=== PATIENT | female | born 2000 | race Caucasian/White ===

== ENCOUNTER 2023-12-02 08:22 | Emergency (ER) | payer OTHER, SELFPAY ==
[2023-12-02 08:23] VITALS: BP 127/80
[2023-12-02 09:27] VITALS: BMI 36.1
--- NOTE | 2023-12-02 09:47 | ED.GENMED ---
History of Present Illness
General
Chief Complaint: Abdominal Symptoms
Source: patient
Exam Limitations: none
Time Seen by Provider: 12/02/23 09:19
Nursing documentation reviewed up to this point in time: agreed with
History of Present Illness
History of Present Illness:
23 yo female w h/o ADHD, acne on Spironolactone, chronic abdominal pain 'but always above my belly button' now here with about 10 days of mid lower abdominal pain, nausea, decreased appetite, vomited once yesterday and once this a.m. Stool 'soft,
stringy with mucous.' Pain is constant, crampy, waxes and wanes from 5/10 now to 8/10 at times, relieved some this a.m. with Bentyl. Zofran has not helped the nausea. Saw PCP @ [facility] yesterday and had blood work, H pylori tests (no results back yet),
given rx for stool sample also.
Denies f/c. Last emesis [address] Kolb, had unremarkable Upper Endoscope and Colonoscopy a year ago.
[facility]: Rx for Vivance for ADHD this month, hasn't started yet
[employer]: [facility]: 3 mos ago, unremarkable visit. LMP 830. Just started control patch.
Past History
Past History
ED Past Medical History: Other (Migraines, question IBS, H. pylori, diverticulosis)
ED Past Surgical History: Tonsilectomy
Review of Systems
Review of Systems
Allergies reviewed?: Yes
All Other Systems: ROS reviewed and negative except as documented in HPI and ROS
Constitutional: Denies fever or chills
EENT: Denies sore throat
Respiratory: Denies trouble breathing
Cardiac: Denies chest pain
ABD/GI: Reports abdominal pain, nausea, vomiting and anorexia; Denies diarrhea, constipated, bloody stools or black stools
: Denies dysuria, frequency, flank pain, difficulty voiding, urgency, bleeding or dark urine
Musculoskeletal: Reports no symptoms
Skin: Reports no symptoms
Neurological: Reports no symptoms
Phy Exam
Physical Exam
Physical Exam:
GENERAL: No acute distress. A&Ox3.
CONSTITUTIONAL: Afebrile.
EYES: clear, conjunctivae normal
ENMT: moist mucus membranes, Pharynx nl
RESPIRATORY: Regular respirations, nonlabored, lungs clear.
CARDIOVASCULAR: Regular rate and rhythm, no murmurs, no rubs.
GI: Soft, tender to palpation left to mid lower abdomen, normal BS
MUSCULOSKELETAL: Moves with ease. Well perfused.
SKIN: Warm, dry, pink
PSYCH: Normal mood and affect. Well kept, interactive and appropriate
NEUROLOGIC: Awake, alert and oriented. No focal neurological deficits
Course
Orders/Labs/Results
Orders:
Orders
12/02/23 09:28
Test Result ONCE
12/02/23 09:29
Complete Blood Count/With Diff Urgent
Comprehensive Metabolic Panel Urgent
HCG, Serum Qualitative Screen Urgent
Lipase Urgent
12/02/23 10:02
0.9% Sodium Chloride 1000 ml [Nss] 1,000 ml IV BOLUS
12/02/23 10:03
Urinalysis Reflex To Culture Urgent
Date Specimen was Collected: 12/02/23
Time Specimen was Collected: 10:02
Urine Microscopic Reflex Cult Urgent
Urine Culture Urgent
JEFFREY Source: U
Specimen Description:
Date Specimen was Collected: 12/02/23
Time Specimen was Collected: 10:02
12/02/23 11:44
CT Abd/Pel (IV only)-DH only Urgent
Comment:
Reason For Exam: pain across lower abdomen
Abnormal Lab Results
12/02/23 12/02/23
: 10:03
Absolute Neuts (auto) 6.6 H 10^3/uL
(1.4-6.5)
Lymphocytes % 18.7 L %
(20.5-51.1)
Carbon Dioxide 16 L mmol/L
(22-30)
Urine Ketones 3+ A
(Negative)
Urine Bilirubin 1+ A
(Negative)
Leukocyte Esterase Rfl Trace A
(Negative)
Urine Bacteria (Reflex) Moderate A
(Negative)
12/02/23 09:29
12/02/23 09:29
Vital Signs
Initial and Last Documented VS:
Initial Vital Signs
Temp Pulse Resp BP Pulse Ox
99.2 F 123 20 127/80 99
12/02/23 08:23 12/02/23 08:23 12/02/23 08:23 12/02/23 08:23 12/02/23 08:23
Last Documented Vital Signs
Temp Pulse Resp BP Pulse Ox
99.2 F 98 16 124/61 97
12/02/23 08:23 12/02/23 11:55 12/02/23 11:55 12/02/23 11:52 12/02/23 11:55
MDM/Problems Addressed
Differential Diagnosis Includes:
UTI, cystitis
MDM/Problems Addressed:
23 yo female w h/o ADHD, acne on Spironolactone, chronic abdominal pain 'but always above my belly button' now here with about 10 days of mid lower abdominal pain, nausea, decreased appetite, vomited once yesterday and once this a.m. Stool 'soft,
stringy with mucous.' Pain is constant, crampy, waxes and wanes from 5/10 now to 8/10 at times, relieved some this a.m. with Bentyl. Zofran has not helped the nausea. Saw PCP @ [facility] yesterday and had blood work, H pylori tests (no results back yet),
given rx for stool sample also.
Denies f/c. Last emesis 7 a.m. bile.
Afebrile, NAD
CBC normal
CMP unremarkable Bicarb 16 likely from anorexia
Lipase normal
HCG neg.
Pt requesting something to drink will give ice chips and observe tolerance.
11:30 AM:
U/A WBC 6-10, moderate bacteria >30 squamous cells do not suspect UTI
Nothing in w/u to explain symptoms
Re exam of abdomen, continues tender across lower abdomen
Pt and family concerned for appendicitis, discussed normal labs, low suspicion, risk of radiation, they prefer to get it.
1:[address] Abd/Pelvis with IV only contrast radiology report read: IMPRESSION:
1. Unchanged 3 mm nodule right lower lobe.
2. As above, numerous prominent, but subcentimeter short axis, lymph nodes throughout the mesentery. Nonspecific but could be seen in association with infectious or inflammatory process.
3. As above, there is suggestion of mild periappendiceal inflammatory stranding. However the appendix is normal in caliber and is filled with air, suggesting against the possibility of acute appendicitis.
4. Right adnexal cyst measuring up to 2.9 cm in diameter, most likely ovarian cyst. Is within expected physiologic size limits for functional cyst in a premenopausal patient. There is trace free fluid within the pelvis.
Final diagnosis: Mesenteric Lymphadenitis
Pt informed, all questions answered. She is feeling much better.
*Critical Care Note
Total Time (30-74mins, 75-104mins- exclusive of procedures): Not Applicable
ED Attending Note
-
Portions of this chart may have been created with voice recognition software.� Occasional wrong word or��sound alike� substitutions may have occurred due to the inherent limitations of voice recognition software.
Discharge Plan
Departure
Patient Disposition: Home (Routine Discharge)
Date of Disposition: 12/02/23
Time of Disposition: 13:45
Patient with high blood pressure during this ER visit?: No
Condition: Good
Discharge Problem:
Abdominal pain, Acute mesenteric adenitis
Instructions: Mesenteric Lymphadenitis (DC), Abdominal Pain
Prescriptions:
No Action
ondansetron 4 mg tablet,disintegrating
4 mg PO Q8H PRN (Reason: nausea and vomiting) 4 Days Qty: 14 0RF
dicyclomine 10 mg capsule
20 mg PO TID PRN (Reason: abdominal pain) Qty: 20 0RF
Referrals:
Zandra Gutierrez PA-C [Family Provider] - Follow up in 5-7 days
Activity Restrictions/Additional Instructions:
As we discussed, no indication for acute appendicitis on your CT scan.
Few inflamed lymph nodes MAY be causing your symptoms and these are typically caused by viral illness and go away on their own. Ibuprofen 600 mg every 6 hours as needed for pain usually helps with the inflammation. You may continue to Bentyl since
it helped
See your doctor for recheck next week.
Interventions
Interventions:
*Risk Screen - Suicide Last Done: 12/02/23 08:23
*General Assessment Last Done: 12/02/23 08:23
*Neglect/Abuse Screening Last Done: 12/02/23 08:23
ED- Fall Risk Assessment Last Done: 12/02/23 14:10
*ED COVID-19 Vaccine History Last Done: 12/02/23 14:10
*Nursing Disposition Last Done: 12/02/23 14:10
IP-Derqux-Hlxdyoocmb Assessment Last Done: 12/02/23 09:27
Discharge Date and Time
Discharge Date/Time: 12/02/23 14:10
Print Language: AZERI
[2023-12-02 09:48] LABS: % Basophils 0.4 % (0-2); % Eosinophils 0.2 % (0-6); % Immature Granulocytes 0.2 % (0-0.5); % Lymphocytes 18.7 % (20.5-51.1); % Monocytes 6.2 % (1.7-9.3); % Neutrophils 74.3 % (42.2-75.2); Absolute Lymphocytes 1.7 10^3/uL (1.2-3.4); Absolute Monocytes 0.6 10^3/uL (0.1-0.6); Absolute Neutrophils 6.6 10^3/uL (1.4-6.5); Hematocrit 37.1 % (37.0-47.0); Hemoglobin 12.7 g/dL (12.0-16.0); Mean Corp Hgb Conc. 34.2 g/dL (33.0-37.0); Mean Corpuscular Hgb 29.2 pg (27.0-31.0); Mean Corpuscular Volume 85.3 fL (81.0-99.0); Mean Platelet Volume 8.4 fL (7.4-10.4); Nucleated Red Blood Cells % 0 %; Platelet Count 347 10^3/uL (130-400); Red Blood Cell Count 4.35 10^6/uL (4.20-5.40); White Blood Cell Count 8.9 10^3/uL (4.8-10.8)
[2023-12-02 09:51] LABS: HCG, Serum Qualitative Screen Negative
[2023-12-02 09:54] LABS: ALT (SGPT) 25 U/L (0-35); AST (SGOT) 26 U/L (14-36); Albumin 4.5 g/dl (3.5-5.0); Alkaline Phosphatase 65 U/L (38-126); Blood Urea Nitrogen 11 mg/dl (7-17); Carbon Dioxide 16 mmol/L (22-30); Chloride 105 mmol/L (98-107); Estimated Creatinine Clearance 93 ml/min; Glucose 76 mg/dl (70-99); Lipase 46 U/L (23-300); Potassium 4.6 mmol/L (3.5-5.1); Sodium 139 mmol/L (135-145); Total Protein 7.2 g/dl (6.3-8.2); eGFR > 60.00
[2023-12-02] MEDS: NSS 1000 IV (10:06)
[2023-12-02 10:11] VITALS: BP 105/72
[2023-12-02 10:12] LABS: Urine Albumin Trace (Neg - Trace); Urine Bilirubin 1+ (Negative); Urine Character Slightly Cloudy (Clear); Urine Color Yellow; Urine Glucose Negative (Negative); Urine Ketone 3+ (Negative); Urine Leukocyte Trace (Negative); Urine Nitrite Negative (Negative); Urine Occult Blood Negative (Negative); Urine Specific Gravity 1.025 (<1.030); Urine Urobilinogen Negative (Neg - 1+)
[2023-12-02 11:03] LABS: Urine Bacteria Moderate (Negative); Urine Squamous Cell >30 /LPF (Few)
[2023-12-02 11:04] LABS: Urine Red Blood Cell 0-2 /HPF (0-2)
[2023-12-02 11:52] VITALS: BP 124/61
== END 2023-12-02 14:10 | disposition home or self-care (01) ==
LOC: EMR 08:22
PROVIDERS: Registered Nurse; EMERGENCY PHYSICIAN Emergency Medicine; FAMILY PHYSICIAN Physician Assistant Medical
DX: R10.30 Lower abdominal pain, unspecified (principal); I88.0 Nonspecific mesenteric lymphadenitis; F90.9 Attention-deficit hyperactivity disorder, unspecified type
CPT/HCPCS: 99284; 96360; 74177; 80053; 81003; 81015; 83690; 84703; 85025; 87086; Q9967

== ENCOUNTER 2024-04-27 17:17 | Emergency (ER) | payer OTHER, SELFPAY ==
[2024-04-27 17:19] VITALS: BP 127/83
[2024-04-27 17:36] LABS: % Basophils 0.5 % (0-2); % Eosinophils 2.4 % (0-6); % Immature Granulocytes 0.3 % (0-0.5); % Lymphocytes 36.1 % (20.5-51.1); % Monocytes 7.6 % (1.7-9.3); % Neutrophils 53.1 % (42.2-75.2); Absolute Basophils 0.1 10^3/uL (0-0.2); Absolute Eosinophils 0.3 10^3/uL (0-0.7); Absolute Lymphocytes 3.9 10^3/uL (1.2-3.4); Absolute Monocytes 0.8 10^3/uL (0.1-0.6); Absolute Neutrophils 5.7 10^3/uL (1.4-6.5); Hematocrit 38.8 % (37.0-47.0); Hemoglobin 13.3 g/dL (12.0-16.0); Mean Corp Hgb Conc. 34.3 g/dL (33.0-37.0); Mean Corpuscular Hgb 29.4 pg (27.0-31.0); Mean Corpuscular Volume 85.7 fL (81.0-99.0); Mean Platelet Volume 8.1 fL (7.4-10.4); Nucleated Red Blood Cells % 0 %; Platelet Count 367 10^3/uL (130-400); Red Blood Cell Count 4.53 10^6/uL (4.20-5.40); Red Cell Dist. Width 11.9 % (11.5-14.5); White Blood Cell Count 10.8 10^3/uL (4.8-10.8)
[2024-04-27 18:20] LABS: ALT (SGPT) 20 U/L (0-35); AST (SGOT) 28 U/L (14-36); Albumin 4.3 g/dl (3.5-5.0); Alkaline Phosphatase 54 U/L (38-126); Blood Urea Nitrogen 12 mg/dl (7-17); Calcium 9.5 mg/dl (8.4-10.2); Carbon Dioxide 23 mmol/L (22-30); Chloride 106 mmol/L (98-107); Glucose 94 mg/dl (70-99); Potassium 4.5 mmol/L (3.5-5.1); Sodium 137 mmol/L (135-145); Total Bilirubin 0.5 mg/dl (0.2-1.3); Total Protein 7.4 g/dl (6.3-8.2); eGFR > 60.00
== END 2024-04-27 19:47 ==
LOC: EMR 17:17
PROVIDERS: Emergency Medicine
DX: A49.8 Other bacterial infections of unspecified site (principal); Z53.21 Procedure and treatment not carried out due to patient leaving prior to being seen by health care provider
CPT/HCPCS: 99281; 80053; 85025

== ENCOUNTER → 2024-06-04 14:49 | Outpatient (REF) | payer OTHER, SELFPAY | LOC: HWRAD 14:49 | PROVIDERS: ATTENDING PHYSICIAN Internal Medicine Gastroenterology; FAMILY PHYSICIAN Physician Assistant Medical | DX: R10.13 Epigastric pain (principal) | CPT/HCPCS: 76700 ==

== ENCOUNTER → 2024-07-17 13:14 | Outpatient (REF) | payer OTHER, SELFPAY | LOC: RAD 13:14 | PROVIDERS: ATTENDING PHYSICIAN Internal Medicine Gastroenterology | DX: R19.7 Diarrhea, unspecified (principal) | CPT/HCPCS: 74177; Q9967 ==

== ENCOUNTER → 2024-07-30 07:43 | Outpatient (REF) | payer OTHER, SELFPAY | LOC: RAD 07:43 | PROVIDERS: ATTENDING PHYSICIAN Internal Medicine Gastroenterology; FAMILY PHYSICIAN Physician Assistant Medical | DX: R11.14 Bilious vomiting (principal) | CPT/HCPCS: 78264; A9541 ==